=== PATIENT | male | born 1970 | race Caucasian/White ===

== ENCOUNTER 2021-08-31 09:27 | Emergency (ER) | payer BC ==
[~2021-08-31] VITALS: Ht 182.9 cm; Wt 91.6 kg
[2021-08-31] MEDS ORDERED: AMOX-430 PO (09:42)
[2021-08-31] MEDS ORDERED: TDAP DIPH,PERTUSS,TET VAC/PF 0.5 ML DISP.SYRIN IM ONE ×2 (09:44→09:45)
--- NOTE | 2021-08-31 09:49 | NUR ---
PT WAS EVALUATED BY DR MARTINEZ. PT WAS D/C'd TO HOME. D/C INSTRUCTIONS GIVEN TO THE PT BY DR NGUYEN.
[2021-08-31 09:53] VITALS: BP 136/78
== END 2021-08-31 10:03 | disposition home or self-care (01) ==
LOC: ER 09:27
DX: S51.852A Open bite of left forearm, initial encounter (principal); Z79.2 Long term (current) use of antibiotics; W54.0XXA Bitten by dog, initial encounter; Y93.89 Activity, other specified; Y92.89 Other specified places as the place of occurrence of the external cause; Y99.8 Other external cause status
CPT/HCPCS: 90715; A4663